=== PATIENT | male | born 2000 | race Caucasian/White ===

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

== ENCOUNTER 2020-06-30 07:22 | Emergency (ER) | payer SELFPAY ==
--- NOTE | 2020-06-30 09:14 | RADIOLOGY REPORT (SQ) ---
EXAM DESCRIPTION: CHEST 2 VIEWS IMAGES COMPLETED DATE/TIME: 06/30/2020 8:49 am REASON FOR STUDY: cough/left anterior chest wall pain COMPARISON: None. EXAM PARAMETERS: NUMBER OF VIEWS: Two views. TECHNIQUE: PA and lateral views of the chest were obtained. RADIATION DOSE: NA LIMITATIONS: None. FINDINGS: LUNGS AND PLEURA: No consolidation, pleural effusion or pneumothorax. MEDIASTINUM AND HILAR STRUCTURES: No mediastinal or hilar contour abnormality. HEART AND VASCULAR STRUCTURES: The cardiac silhouette and pulmonary vasculature are within normal cazares its. BONES: No acute findings. HARDWARE: None in the chest. OTHER: No other finding. IMPRESSION: No acute cardiopulmonary process. TECHNICAL DOCUMENTATION: JOB ID: [id number] 2010 [employer]- All Rights Reserved Reading location - IP/workstation name: [email or web address]
--- NOTE | 2020-06-30 10:18 | EKG REPORT ---
SEVERITY:- NORMAL ECG - SINUS RHYTHM : Confirmed by: Katerina Sherman MD 30-Jun-2020 10:18:07
--- NOTE | 2020-06-30 10:59 | ER Document Report ---
Entered by BLAZE MORIN SCRIBE 06/30/20 0832 Acting as scribe for:HAYLEE MATIAS MD ED General - General Chief Complaint: Shortness Of Breath Stated Complaint: DIFFICULTY BREATHING Time Seen by Provider: 06/30/20 08:12 Information source: Patient Notes: This 20 year old male patient presents to the emergency department today with complaints of intermittent chest pain and difficulty breathing for the past x1.5 months. 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 Denies any regular home medications or medical/surgical history. Patient reports episodic and recurrent episodes of chest pain for the past x3 years and has seen his PCP about this. TRAVEL OUTSIDE OF THE [place] IN LAST 30 DAYS: No - Related Data Allergies/Adverse Reactions: No Known Allergies Allergy (Verified 11/16/17 19:19) Past Medical History - General Information source: Patient - Social History Smoking Status: Never Smoker Cigarette use (# per day): No Chew tobacco use (# tins/day): No Frequency of alcohol use: Occasional Drug Abuse: None Family History: Reviewed & Not Pertinent Pulmonary Medical History: Denies: Hx Asthma Renal/ Medical History: Denies: Hx Peritoneal Dialysis Surgical Hx: Negative - Immunizations Immunizations up to date: Yes Review of Systems - Review of Systems Constitutional: No symptoms reported EENT: No symptoms reported Cardiovascular: See HPI, Chest pain Respiratory: See HPI, Other - difficulty breathing Gastrointestinal: No symptoms reported Genitourinary: No symptoms reported Male Genitourinary: No symptoms reported Musculoskeletal: No symptoms reported Skin: No symptoms reported Hematologic/Lymphatic: No symptoms reported Neurological/Psychological: No symptoms reported -: Yes All other systems reviewed and negative Physical Exam - Vital signs Vitals: Temp Pulse Resp BP Pulse Ox 98.1 F 76 16 121/81 98 06/30/20 07:28 06/30/20 07:28 06/30/20 07:28 06/30/20 07:28 06/30/20 07:28 - General General appearance: Appears well, Alert - HEENT Head: Normocephalic, Atraumatic Eyes: Normal Pupils: PERRL - Respiratory Respiratory status: No respiratory distress Breath sounds: Normal Notes: Tenderness with palpation to the left costalsternal border. - Cardiovascular Rhythm: Regular Heart sounds: Normal auscultation Murmur: No - Abdominal Inspection: Normal Distension: No distension Bowel sounds: Normal Tenderness: Nontender - Extremities General upper extremity: Normal inspection, Normal ROM General lower extremity: Normal inspection, Normal ROM. No: Edema - Neurological Neuro grossly intact: Yes Cognition: Normal Orientation: AAOx4 [place] Coma Scale Eye Opening: Spontaneous [place] Coma Scale Verbal: Oriented [place] Coma Scale Motor: Obeys Commands [place] Coma Scale Total: 15 Speech: Normal Motor strength normal: LUE, RUE, LLE, RLE Sensory: Normal - Psychological Associated symptoms: Normal affect, Normal mood - Skin Skin Temperature: Warm Skin Moisture: Dry Skin Color: Normal Course - Re-evaluation Re-evalutation: 06/30/20 10:55 Patient resting comfortably not showing signs of distress. - Vital Signs Vital signs: Temp Pulse Resp BP Pulse Ox 98.1 F 76 16 121/81 98 06/30/20 07:28 06/30/20 07:28 06/30/20 07:28 06/30/20 07:28 06/30/20 07:28 06/30/20 10:56 Vital signs stable pulse ox 98% afebrile blood pressure 121/81 respiratory rate 16. - Laboratory Results Critical Laboratory Results Reviewed: No Critical Results - Radiology Results Radiology Results Interpreted: 06/30/20 10:56 Chest X-Ray 06/30/20 08:28 IMPRESSION: No acute cardiopulmonary process. Chest x-ray shows no acute cardiopulmonary process no infiltrate. Critical Radiology Results Reviewed: No Critical Results - EKG Interpretation by Me Additional EKG results interpreted by me: 06/30/20 10:56 Twelve-lead EKG shows normal sinus rhythm rate of 63 normal axis DE interval within normal range QRS interval within normal range QT interval within normal range no acute ST elevations to suggest STEMI. Discharge - Discharge Clinical Impression: Pain of anterior chest wall with respiration Condition: Stable Disposition: HOME, SELF-CARE Additional Instructions: Chest Wall Pain Your chest pain has been diagnosed as coming from the chest wall. This is often caused by straining the muscles or joints in the chest during physical activity, direct trauma, coughing, or vigorous vomiting. Persons with arthritis are especially prone to this type of pain, due to inflammation of the cartilage joints near the breast bone. Occasionally, no cause can be found. Rest from strenuous physical activity. This kind of chest pain is usually made worse by movement of the chest. Depending on the symptoms, we may prescribe medicine for pain, muscle relaxation, and antiinflammatory effects. If the pain is new, and seems to be due to muscle strain, cold packs can help. Otherwise, apply gentle warmth to the painful area for 15 minutes every hour or two. You should contact the doctor immediately if things change. Further evaluation is needed if you develop a fever or cough, if the nature of the pain changes, or if you become short of breath. Prescriptions: Ibuprofen [Ibu] 800 mg PO TID PRN 7 Days #21 tablet PRN Reason: prn pain/swelling/fever I personally performed the services described in the documentation, reviewed and edited the documentation which was dictated to the scribe in my presence, and it accurately records my words and actions.
[2020-06-30 11:05] VITALS: BP 125/78
== END 2020-06-30 11:05 | disposition home or self-care (01) ==
LOC: ER 07:22
DX: R07.1 Chest pain on breathing (principal); R06.02 Shortness of breath
CPT/HCPCS: 71046; 93005; 93010; 99284